=== PATIENT | male | born 1960 | race Caucasian/White ===

== ENCOUNTER → 2016-05-09 | Outpatient (CLI) | payer OTHER ==
[~2016-05-09] MED LIST: BACID GT; BACLOFEN10 MG; BACLOFEN10 MG PO; BACTRIM DS TABL1 TA1 GT; CALCIMAR200 IU/ML; CALCIUM CA500 MG/5 M PO; CARAFATE PO; CARBAMAZEPINE GT; CARDURA1 MG PO; CLINDAMYCIN; CLINDAMYCIN PHO30 GM TP; COLACE; DIASTAT ACUDIAL1 KIT; DIASTAT ACUDIAL1 KIT PR; DIASTAT10 MG PR; DIASTAT10 MG RC; ERYTHROMYC200 MG/5 M GT; HEMOCYTE324 MG GT; HYDROCODON-ACE1 EAC7 PEG; IPRAT-ALBUT 0.5-3 ML IH; LACTULOSE10 G/15 ML GT; LACTULOSE10 G/15 ML PO; MILK OF MAGNESIA; MIRALAX17 G2 PO; MIRALAX17 GM GT; MIRALAX255 GM; MULTI VITAMIN1 EACH PO; MULTI-VITAMIN1 TAB; MULTIVITAM9 MG/15 M1 PO; NEXIUM40 MG/PACK PO; NORCO1 TAB 10/3 DOB; OCEAN45 ML; OYSTER CALCIUM500 MG; PAIN RELIEF325 M1 DOB; PEPCID AC20 MG PEG; PERIDEX480 ML PO; PHENADOZ12.5 MG RC; PREVACID; PREVACID PO; PROVENTIL0.83 MG/ML IH; PULMICORT; PULMICORT200 MCG/AE INH; RANEXA500 MG DOB; REGLAN; REGLAN PO; RISAMINE OINTM113 GM TP; SINGULAIR PEG; TEGRETOL; TEGRETOL GT; TEGRETOL PO; TEGRETOL S GT; TEGRETOL XR; TEGRETOL XR GT; TEGRETOL100 MG/5 M GT; THERAGRAM GT; TRIPLE ANTIBI1 UDPK1 TP; TYLENOL325 M1 PEG; VANCOMYCIN250 MG/5 M PEG; VASOLEX OINTMEN30 GM TP; VITAMIN D-32000 UNI1 DOB; XOPENEX1.25 MG/0. NEB; ZANTAC15 MG/M1 PO; ZELNORM; ZITHROMAX PO; [UNRECOGNIZED DRUG - CODE] PEG; [UNRECOGNIZED DRUG - OTHER] GT; [UNRECOGNIZED DRUG - OTHER] PO
== END | disposition home or self-care (01) ==
LOC: CSSDAY 13:02
DX: M81.0 Age-related osteoporosis without current pathological fracture (principal)
CPT/HCPCS: 96372; J0897

== ENCOUNTER 2016-10-14 09:31 | Emergency (ER) | payer OTHER ==
[~2016-10-14] VITALS: Ht 154.9 cm; Wt 42.3 kg
--- NOTE | ~2016-10-14 | CR7 ---
[facility] A Service of [facility] & [facility] RADIOLOGY TEXT RESULTS PATIENT: ADIEL GARDNER LOCATION: [facility] : 58 UNIT #: [id number] AGE: [address]: Carlyle Hensley MD SEX: M ORDER DR: [id number] [facility] [address] [place], [place] [address] [id number] E MR#: [id number] Acc #: [id number] NAME: ADIEL GARDNER. : 1960 SEX: M STUDY DATE/TIME: 10/14/2016 10:18 UNIT: [facility] ROOM: STUDY DESCRIPTION: CR Abdomen Single AP View Attending Physician: Carlyle Hensley M.D. Ordering Physician: Carlyle Hensley M.D. Primary Care Physician: Grant Ramirez Sr., M.D. MEDICAL IMAGING REPORT This report is preliminary unless electronic signature is present EXAM Single view of the abdomen 10/14/2016 HISTORY Patient bleeding from gastric tube site last night. Gastric tube was replaced today and emergency department. Evaluate for extravasation. Evaluate tube placement. FINDINGS Single radiograph of the abdomen was obtained following injection of the patient's gastric tube with 50 mL of gastrograph. Exam is limited by poor radiographic technique. The far right side of the abdomen was not included. Normal contrast opacification of the stomach and proximal small bowel is seen. There is no evidence of contrast extravasation from the visualized gut. Dictated by... Luis Ruiz M.D. THIS IS AN ELECTRONICALLY VERIFIED REPORT Luis Ruiz M.D. at 10/15/2016 6:32 AM LINK/carrie TD: 10/14/2016 22:22 JOB #: [id number] MEDICAL IMAGING REPORT Page 1 of 1 COPY
== END 2016-10-14 12:15 | disposition home or self-care (01) ==
LOC: CED 09:31
DX: K94.21 Gastrostomy hemorrhage (principal); Z90.49 Acquired absence of other specified parts of digestive tract; Z88.8 Allergy status to other drugs, medicaments and biological substances; Z79.899 Other long term (current) drug therapy
CPT/HCPCS: 74000; 99283